=== PATIENT | female | born 1985 | race Caucasian/White ===

== ENCOUNTER 2018-06-19 00:58 | Emergency (ER) | payer MEDICAID, OTHER ==
[2018-06-19] MEDS: DEXAMETHASONE 10 MG/ML 1 ML INJ IM (03:56)
[2018-06-19] MEDS: DIPHENHYDRAMINE 50 MG INJ IM (03:56)
[2018-06-19] MEDS ORDERED: CLINDAMYCIN 600 MG INJ IM (04:00)
[2018-06-19] MEDS: ACETAMINOPHEN 500 MG TAB PO (04:16)
[2018-06-19] MEDS: LIDOCAINE 1% (MDV) 20 ML INJ SC (04:25)
[2018-06-19] MEDS: CLINDAMYCIN 300 MG INJ IM (04:25)
== END 2018-06-19 04:40 | disposition home or self-care (01) ==
LOC: FTE 00:58
DX: J03.90 Acute tonsillitis, unspecified (principal); A49.1 Streptococcal infection, unspecified site; F17.210 Nicotine dependence, cigarettes, uncomplicated
CPT/HCPCS: 96372; 99284-25

== ENCOUNTER 2018-09-09 06:04 | Emergency (ER) | payer MEDICAID | END 2018-09-09 08:28 | disposition home or self-care (01) | LOC: FTE 06:04 | DX: B86 Scabies (principal); L03.90 Cellulitis, unspecified; A49.02 Methicillin resistant Staphylococcus aureus infection, unspecified site; Z87.891 Personal history of nicotine dependence | CPT/HCPCS: 99283; Z7502 ==

== ENCOUNTER 2018-10-04 07:23 | Emergency (ER) | payer MEDICAID ==
[2018-10-04 08:43] LABS: URINE BLOOD (Dip) POC Negative (NEGATIVE); URINE GLUCOSE (Dip) POC Negative (NEGATIVE); URINE KETONES (Dip) POC Negative (NEGATIVE); URINE LEUKOCYTE EST (Dip) POC Negative (NEGATIVE); URINE NITRITE (Dip) POC Negative (NEGATIVE); URINE TOTAL PROTEIN POC Negative (NEGATIVE)
== END 2018-10-04 09:22 | disposition home or self-care (01) ==
LOC: FTE 07:23
DX: N76.0 Acute vaginitis (principal); F17.210 Nicotine dependence, cigarettes, uncomplicated
CPT/HCPCS: 81003; 81025; 87591; 99283